=== PATIENT | male | born 1965 | race Caucasian/White ===

== ENCOUNTER 2016-08-21 10:57 | Inpatient (IN) | payer SELFPAY ==
[2016-08-21] MEDS ORDERED: NS 500 ML IV ONE (11:29)
--- NOTE | 2016-08-21 11:33 | CPEKG ---
Heart Rate: 105 RR Interval: 571 P-R Interval: 156 QRSD Interval: 114 QT Interval: 380 QTC Interval: 503 P [place]: 76 QRS [place]: -40 T Wave [place]: 150 EKG Severity - ABNORMAL ECG - EKG Impression: SINUS TACHYCARDIA EKG Impression: MULTIPLE VENTRICULAR PREMATURE COMPLEXES EKG Impression: BIATRIAL ABNORMALITIES EKG Impression: LVH WITH IVCD, LAD AND SECONDARY REPOL ABNRM Electronically Signed By: Parker Matthews 21-Aug-2016 11:43:40
--- NOTE | 2016-08-21 11:39 | EDPHY ---
H & P Time Seen by Provider: 08/21/16 11:13 HPI/ROS: HPI Trouble breathing. 51-year-old male by private vehicle with family. This patient reports that for the last 2 weeks he has been more short of breath. This is worse with exertion and worse with laying flat. Describes it as being worse significantly over the last 3-4 days. He reports that he sometimes wakes up at night gasping for air. Reports he feels short of breath with ambulating and mild exertion. He describes also having a sensation of chest pressure and tightness. Has never had this sensation before. He does construction work. And remodeled motor homes. He does report he has had recent exposure to mice feces. He denies cough. No fever. No other complaints. ROS: Constitutional: No fever, no chills. No weakness. Eyes: No discharge. No changes in vision. ENT: No sore throat. No nasal congestion or rhinorrhea. Respiratory: No cough. As above. Cardiac: As above. Gastrointestinal: No abdominal pain, no vomiting, no diarrhea. Genitourinary: No hematuria. No dysuria or increased frequency with urination. Musculoskeletal: No back pain. No neck pain. No myalgias or arthralgias. Skin: No rashes. Neurological: No headache. No focal weakness or altered sensation. Past medical history: Includes hypertension. He does not take medication for this. He does not have a primary care physician. Social history: He quit smoking 20 years ago. He is here with his family. 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 Last use was a couple of days ago. Denies alcohol. Physical Exam: General Appearance: Alert, no distress. This patient is responding to questions appropriately and in full sentences. This patient appears well- hydrated and well-nourished. Eyes: Pupils equal and round no pallor or injection. No lid edema, erythema or injection. ENT, Mouth: Mucous membranes are moist. The pharyngeal tissues are unremarkable. No edema or swelling. No asymmetry suggestive of abscess. No erythema or exudates. Respiratory: There are no retractions, lungs are clear to auscultation but distant. No wheezing, no rhonchi, no crackles. No tachypnea. Cardiovascular: Regular rate and rhythm. Tachycardia. No murmur. Gastrointestinal: Abdomen is soft and nontender, no masses, bowel sounds normal. No focal tenderness at McBurney's point. No Nj sign. Neurological: Motor sensory function is grossly intact. Cranial nerves are normal. Gait is normal. Skin: Warm and dry, no rashes. Musculoskeletal: Neck is supple and nontender. Extremities are symmetrical. No lower extremity edema. All joints range without pain or impingement. Psychiatric: No agitation. No depression. Database: EKG: EKG time is 11:30 a.m.; EKG shows a sinus tachycardia with ventricular rate of 105. There are intermittent PVCs. There is a nonspecific intraventricular conduction delay. Left ventricular hypertrophy is noted. Atrial abnormalities noted. Interpreted by me. Imaging: Chest x-ray PA and lateral; the cardiac mediastinal silhouette is unremarkable. No evidence of infiltrate or pneumothorax. No acute cardiopulmonary disease process noted. Interpreted by me. CT angiogram of chest; negative for PE. Cardiomyopathy noted. Results discussed with staff radiologist Dr. Gurpreet Coreas. Echocardiogram; global hypokinesis. Hypertrophic cardiomyopathy. Ejection fraction estimated at 12%. Procedures: Emergency department course: IV was placed. He was placed on a advanced nursing professor. He will be started on IV normal saline with 250 cc to be given over the next hour. Add EKG and chest x- ray were performed. Vital signs were reviewed. Moderately hypertensive. Tachycardic at 1:07 a.m.. Afebrile. Room air pulse oximetry is 95%. 1:00 p.m., patient re-evaluated. Resting comfortably at this time. Results of echocardiogram discussed. Need for admission discussed. Need for CT angiogram to evaluate for pulmonary embolism discussed. He and family consents. Hospitalist paged. 1:40 p.m., awaiting results of CT angiogram. Discussed case with hospitalist. Patient accepted for admission to the hospitalist service by Dr. Nunez. Cardiology to consult after admission. 1:50 p.m., patient re-evaluated. Resting comfortably. Results of CT angiogram of chest discussed with him and family. He was admitted to the hospitalist service in stable condition. Differential Diagnosis: The differential diagnosis on this patient includes but is not limited to pulmonary embolism, congestive heart failure, hypertrophic cardiomyopathy, acute coronary syndrome, reactive airway disease. Pneumonia, Hanta virus pulmonary syndrome unlikely. This represents a partial list of diagnoses considered. These considerations are based on history, physical exam, past history, reassessment and diagnostic testing. Smoking Status: Former smoker Constitutional: Initial Vital Signs Temperature (C) 36.7 C 08/21/16 10:59 Heart Rate 107 H 08/21/16 10:59 Respiratory Rate 18 08/21/16 10:59 Blood Pressure 155/97 H 08/21/16 10:59 O2 Sat (%) 95 08/21/16 10:59 O2 Delivery Mode Nasal Cannula O2 (L/minute) 2 Allergies/Adverse Reactions: codeine Allergy (Verified 08/21/16 10:59) Tetracyclines Allergy (Verified 08/21/16 10:59) Home Medications: Medication Instructions Recorded Aspirin [Aspirin 325 mg (*)] 325 mg PO DAILY PRN 08/21/16 Calcium Carbonate [Tums 500MG (*)] 500 mg PO DAILY PRN 08/21/16 Ibuprofen [Motrin (*)] 200 mg PO DAILY PRN 08/21/16 Medical Decision Making - Data Points Laboratory Results: Laboratory Results 08/21/16 11:43 08/21/16 11:43 Medications Given: Discontinued Medications Furosemide (Lasix Injection) 40 mg IVP ONCE ONE Stop: 08/21/16 14:41 Last Admin: 08/21/16 15:35 Dose: 40 mg Sodium Chloride (Ns) 500 mls @ 0 mls/hr IV ONCE ONE PRN Reason: As Directed Stop: 08/21/16 11:30 Last Admin: 08/21/16 11:50 Dose: 500 mls Departure - Departure Disposition: [facility] Inpatient Acute Clinical Impression: Dyspnea, Cardiomyopathy, Heart failure
[2016-08-21 11:55] LABS: % IMMATURE GRANULYOCYTES 0.3 % (0.0-1.1); ABSOLUTE IMMATURE GRANULOCYTES 0.02 10^3/uL (0.00-0.10); ADD DIFF? NO; ADD MORPH? NO; ADD SCAN? NO; ATYPICAL LYMPHOCYTE FLAG 0 (0-99); FRAGMENT RBC FLAG 0 (0-99); HEMOGLOBIN 16.3 g/dL (13.7-17.5); LEFT SHIFT FLG 0 (0-99); LIPEMIA HEMOLYSIS FLAG 80 (0-99); MEAN CELL HEMOGLOBIN 28.5 pg (27.9-34.1); MEAN CELL HEMOGLOBIN CONCENTR. 33.3 g/dL (32.4-36.7); MEAN CELL VOLUME 85.8 fL (81.5-99.8); MEAN PLATELET VOLUME 11.4 fL (8.7-11.7); PLATELET CLUMPS FLAG 0 (0-99); PLATELET COUNT 131 10^3/uL (150-400); RED BLOOD CELL COUNT 5.71 10^6/uL (4.40-6.38); RED CELL DISTRIBUTION WIDTH 14.3 % (11.5-15.2)
[2016-08-21 12:03] LABS: INR 1.13 (0.83-1.16); PROTIME(PATIENT) 14.4 SEC (12.0-15.0)
[2016-08-21 12:04] LABS: APTT 27.3 SEC (23.0-38.0)
[2016-08-21 12:11] LABS: ANION GAP 11 mEq/L (8-16); CARBON DIOXIDE 19 mEq/l (22-31); CHLORIDE 112 mEq/L (97-110); CREATININE 1.3 mg/dL (0.7-1.3); ETHANOL SERUM < 10 mg/dL (0-10); GLOMERULAR FILTRATION RATE 58; GLUCOSE 91 mg/dL (70-100); POTASSIUM 4.1 mEq/L (3.5-5.2); SODIUM 142 mEq/L (134-144)
[2016-08-21 12:22] LABS: CK-MB INTERPRETATION NEGATIVE (NEGATIVE); TROPONIN I 0.025 ng/mL (0-0.034)
[2016-08-21] MEDS ORDERED: IOPAMIDOL (ISOVUE 370) 100 ML BTL IV ONE (12:32)
--- NOTE | 2016-08-21 13:33 | ECHO ---
[id number] + + [address] : : [place] [address] : : [phone] + + Adult Echocardiographic Report + --------+ :Name: HILDA EASTMAN CStudy Date: 08/21/2016 12:34 PM : : Hospital Admission Number: [id number] Anne tion: ER: :: 1965 Gender: Male Height: 72 i n : :Age: 51 yrs Weight: 195 lb : :Reason For Study: Eval LV Fx : : BSA: 2.1 met ers2 : :History: SOB : + --------+ MMode/2D Measurements \T\ Calculations IVSd: 1.0 cm LVIDd: 5.9 cm FS: 5.5 % MV Diam: 3.1 cm LVPWd: 1.3 cm LVIDs: 5.5 cm EDV(Teich): 170.5 ml ESV(Teich): 149.9 ml EF(Teich): 12.1 % Ao root diam: 3.7 cm LVOT diam: 2.0 cm ACS: 2.0 cm LVOT area: 3.1 cm2 Normal Measurement Values: + + :LVIDd (3.5-5.7cm) IVSd (0.6-1.1cm) LVPWd (0.6-1.1cm) Aortic Root (2.0-3.7cm)Left Atrium (1.5-4.0cm): :LV Vol(d) (76-115ml) LV Vol(s) (29-48ml) Ejec Fraction (50-65%)PV Danilo (0.6- 1.2m/s) TV Danilo (0.4-1.0m/s) : :MV E Danilo (0.8-1.0m/s)MV A Danilo (0.3-1.0m/s)LVOT Danilo (0.7-1.2m/s) Asc Ao Danilo ( 0.9-1.8m/s) : + + Doppler Measurements \T\ Calculations MV E max danilo: MV V2 max: Ao V2 max: AI max danilo: 98.2 cm/sec 113.0 cm/sec 103.0 cm/sec 291.0 cm/sec MV A max danilo: MV max P.1 mmHg Ao max PG: AI max P.2 cm/sec MV V2 mean: 4.2 mmHg 33.9 mmHg MV E/A: 4.2 46.0 cm/sec Ao mean PG: AI dec slope: MV mean P.0 mmHg 1.0 mmHg Ao V2 mean: 259.0 cm/sec2 MV V2 VTI: 13.5 cm 74.4 cm/sec AI P1/2t: MV area (1 diam): Ao V2 VTI: 16.2 cm329.1 msec 7.5 cm2 HELEN(I,D): 1.5 cm2 MVA(VTI): 1.8 cm2 HELEN(V,D): 1.6 cm2 MV Flow area (1diam): 7.5 cm2 LV V1 max: MR max danilo: MR(RF 1 diam): SV(MV 1 diam): 53.4 cm/sec 588.0 cm/sec 13.0 % 101.9 ml LV V1 max PG: MR max PG: SI(MV 1 diam): 1.1 mmHg 138.3 mmHg LV V1 mean P.3 ml/m2 1.0 mmHg SV(LVOT): 24.8 ml LV V1 mean: 39.6 cm/sec LV V1 VTI: 7.9 cm PA V2 max: TR max danilo: RF(MV,Ao)(1 diam): 67.9 cm/sec 284.0 cm/sec -0.71 PA max PG: TR max PG: RF(MV,LVOT) 1.8 mmHg 32.3 mmHg (1diam): 0.76 RAP systole: 5.0 mmHg RVSP(TR): 37.3 mmHg Left Ventricle The left ventricle is moderate to severely dilated. There is normal left ventricular wall thickness. Left ventricular systolic function is severely reduced. Ejection Fraction = 10%. There is severe global hypokinesis of the left ventricle. Right Ventricle The right ventricle is normal size. The right ventricular systolic function is moderate to severely reduced. Atria The left atrium is severely dilated. The right atrium is mild to moderately dilated. Mitral Valve There is no mitral valve stenosis. The MR is most likely underestimated due to low LV function. There is moderate mitral regurgitation. Tricuspid Valve There is moderate tricuspid regurgitation. The amount of TR is most lilkely underestimated due to poor RV function. Aortic Valve The aortic valve is trileaflet. There is no aortic stenosis. Mild aortic regurgitation. Pulmonic Valve The pulmonic valve is normal in structure and function. There is no pulmonic valvular regurgitation. Great Vessels The aortic root is normal size. Pericardium/Pleural There is no pericardial effusion. Conclusion A complete two-dimensional transthoracic echocardiogram was performed (2D, M-mode, Doppler and color flow Doppler). Left ventricular systolic function is severely reduced. Ejection Fraction = 10%. There is severe global hypokinesis of the left ventricle. The right ventricular systolic function is moderate to severely reduced. The left atrium is severely dilated. The right atrium is mild to moderately dilated. The MR is most likely underestimated due to low LV function. There is moderate mitral regurgitation. There is moderate tricuspid regurgitation. The amount of TR is most lilkely underestimated due to poor RV function. The aortic valve is trileaflet. Mild aortic regurgitation. The aortic root is normal size. There is no pericardial effusion. The left ventricle is moderate to severely dilated. Final Reading Physician: Lulu Stewart signed on 08/21/2016 01:31 PM Ordering Physician: Parker Matthews Performed By: Ricki Griffin, [employer]
[2016-08-21] MEDS ORDERED: FUROSEMIDE 40 MG/4 ML VIAL IVP ONE (14:40)
[2016-08-21] MEDS ORDERED: TEMAZEPAM 15 MG CAP PO PRN (15:15)
[2016-08-21] MEDS ORDERED: ACETAMINOPHEN 325 MG TAB PO PRN ×2 (15:15→15:29)
[2016-08-21] MEDS ORDERED: NITROGLYCERIN 0.4 MG BTL SL PRN (15:15)
[2016-08-21] MEDS ORDERED: ONDANSETRON DISINTEGRATING 4 MG TAB PO PRN (15:29)
[2016-08-21] MEDS ORDERED: ONDANSETRON 4 MG/2 ML VIAL IVP PRN (15:29)
[2016-08-21] MEDS ORDERED: ASPIRIN 325 MG TAB PO PRN (15:31)
--- NOTE | 2016-08-21 15:34 | GCON ---
[f rep st] CONSULTATION DATE OF CONSULTATION: 08/21/2016 CHIEF COMPLAINT: Shortness of breath. HISTORY OF PRESENT ILLNESS: The patient is a 51-year-old male with a history of untreated hypertens ion and ongoing meth use who presented to the hospital complaining of shortness of breath and chest pressure. 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 This progressed, and over the past 2 weeks, his shortne ss of breath has become fairly pronounced with even minimal exertion. He ultimately presented to [facility] yesterday after he lie down at night time and was severely short of breath and felt like he was going to . He has also had intermittent chest pressure over the last 7-10 days. His echo cardiogram shows a severely depressed ejection fraction with global hypokinesis and EF of 10%. His troponin is negative x1, and BNP is elevated at 4330. He did have a pulmonary CT angiogram which wa s negative for pulmonary embolus. He was first diagnosed with hypertension as a teenager. He has been intermittently treated since at time. He ran out of his medication at least 1 year ago and, therefore, has been untreated since that time. He also has a history of methamphetamine use for the past 25 years. He has tried to cut back over the last few months but is still smoking once every 2-3 days. PAST MEDICAL HISTORY: Hypertension. PAST SURGICAL HISTORY: Noncontributory. FAMILY HISTORY: His father has some heart disease, but the details are unknown. SOCIAL HISTORY: He quit smoking tobacco 15 years ago. He also quit alcohol use 20 years ago. He c ontinues to smoke meth every few days and has a 25 year history. MEDICATIONS: None. ALLERGIES: Codeine and tetracycline. PHYSICAL EXAMINATION: GENERAL: Patient appears in no acute distress. VITALS: Blood pressure 156/ 106, heart rate 105, respirations 16, oxygen saturation of 95% on 2 L. Afebrile. NECK: No carotid bruits auscultated. LUNGS: Clear to auscultation. No wheezes, rhonchi, or crackles auscultated. CARDIAC: Regular rate and rhythm with a positive systolic murmur. ABDOMEN: Soft, nontender, nond istended. EXTREMITIES: Palpable pulses bilaterally without any evidence of edema. NEUROLOGIC: No nfocal. SKIN: No obvious rashes or ecchymosis identified. PSYCHIATRIC: Mood and affect appropria te. REVIEW OF SYSTEMS: Negative except for what is stated in the H and P. LABORATORY: Troponin negative x1. CBC within normal limits. D-dimer 3.22 and BNP 4330. DIAGNOSTIC STUDIES: Chest CTA is negative for pulmonary embolus. Echocardiogram revealed severely depressed ejection fraction of 10% with global hypokinesis. His right ventricular systolic function is moderately to severely reduced. He has moderate MR, but this is likely underestimated due to hi s cardiomyopathy. There is also moderate tricuspid regurgitation. EKG reveals sinus tachycardia at a rate of 105 with 2 PVCs. His QRS duration is prolonged at 114 wi th a nonspecific interventricular conduction delay. He has diffuse nonspecific ST-T wave changes. ASSESSMENT: The patient is a 51-year-old male, who presents with a severe cardiomyopathy in the set ting of methamphetamine use and uncontrolled hypertension. PLAN: The patient presents with a newly diagnosed severe cardiomyopathy with global hypokinesis and ejection fraction of 10%. This is likely related to his 25 year meth use. He is currently in mild congestive heart failure and, therefore, will be given 1 dose of Lasix 40 mg IV. He also will be s tarted on good medical therapy including Coreg 12.5 mg twice a day and aspirin 325 mg daily. Ultima tely he will need an angiogram to assess his coronary circulation. If he is able lie flat, we plan to do this tomorrow. /[id number]/MODL
--- NOTE | 2016-08-21 16:09 | GHP ---
[f rep st] HISTORY AND PHYSICAL DATE OF ADMISSION: 08/21/2016 CHIEF COMPLAINT: Shortness of breath; history of chest pain. HISTORY OF PRESENT ILLNESS: This is a 51-year-old male with a history of untreated hypertension and methamphetamine use. He states over the last 3 weeks he has been having increasing shortness of br eath with exertion as well. Also with orthopnea. No lower extremity edema. He has had pretty much constant chest pressure. He has had no recent viral infections. He has not had chest pain prior t o the last few weeks. He has been under a lot of emotional distress. REVIEW OF SYSTEMS: A 10-point review of systems was obtained and other than stated was negative. PAST MEDICAL HISTORY: Hypertension. SOCIAL HISTORY: No tobacco or alcohol use, but does smoke methamphetamine usually about every other day. He has been heavily using for some time. FAMILY HISTORY: Does not know his family history. PHYSICAL EXAM: VITAL SIGNS: Afebrile, blood pressure 168/120, heart rate 100, oxygen saturation 98 % 2 L. GENERAL: The patient is well developed, no apparent distress. HEENT: Nonicteric sclerae. Extraocular muscles intact. Moist mucous membranes. NECK: Supple. No thyromegaly. LUNGS: Good effort. Clear to auscultation bilaterally. CARDIOVASCULAR: Regular rate and rhythm. No murmurs, gallops. ABDOMEN: Positive bowel sounds. Soft, nontender, nondistended. No hepatosplenomegaly. EXTREMITIES: No clubbing, cyanosis, or edema. SKIN: Without rash. No intact. NEUROLOGIC: Aler t and oriented x3. Moving all 4 extremities equally. PSYCHIATRIC: Normal mood and affect. LABORATORY DATA: CBC is normal except platelets are slightly low 131. Sodium 142, potassium 4.1, B UN is 25, creatinine 1.3. CPK 530. Troponin is 0.025. BNP 4300. IMAGING: Chest x-ray shows cardiomegaly. No overt failure. Echocardiogram shows EF of 10%, dilated left ventricle, severe global hypokinesis of left ventricle. Moderate mitral regurgitation. CT to rule out pulmonary embolism shows no PE. EKG personally reviewed and interpreted. Sinus tachycardia. ST-segment elevations in the interiorl y looks like repolarization and T-wave inversions laterally. ASSESSMENT: This is a 51-year-old, who presented with new onset cardiomyopathy. PLAN: 1. Cardiomyopathy. Patient does not look fluid overloaded at this point. I think his dyspnea is p robably related to his cardiomyopathy. We will start medical management including carvedilol and li sinopril. I talked to cardiology and they will probably do a heart cath tomorrow. Will keep him n. p.o. after midnight. Will check another troponin in the morning. 2. Uncontrolled hypertension. Medications as above. 3. Methamphetamine use. Patient is counseled to abstain in the future. We can add a little bit of Ativan for some withdrawal symptoms. /[id number]/MODL
[2016-08-21] MEDS: LISINOPRIL 10 MG TAB PO SCH (16:58)
[2016-08-21] MEDS: LORazepam 0.5 MG TAB PO PRN ×2 (16:58→22:30)
[2016-08-21] MEDS: CARVEDILOL 6.25 MG TAB PO SCH (18:07)
[2016-08-22 05:13] LABS: % IMMATURE GRANULYOCYTES 0.3 % (0.0-1.1); ABSOLUTE IMMATURE GRANULOCYTES 0.02 10^3/uL (0.00-0.10); ADD DIFF? NO; ADD MORPH? NO; ADD SCAN? NO; ATYPICAL LYMPHOCYTE FLAG 0 (0-99); FRAGMENT RBC FLAG 0 (0-99); HEMATOCRIT 49.5 % (40.0-51.0); HEMOGLOBIN 16.6 g/dL (13.7-17.5); LEFT SHIFT FLG 0 (0-99); LIPEMIA HEMOLYSIS FLAG 80 (0-99); MEAN CELL HEMOGLOBIN 28.8 pg (27.9-34.1); MEAN CELL HEMOGLOBIN CONCENTR. 33.5 g/dL (32.4-36.7); MEAN CELL VOLUME 85.8 fL (81.5-99.8); MEAN PLATELET VOLUME 11.4 fL (8.7-11.7); PLATELET CLUMPS FLAG 10 (0-99); PLATELET COUNT 132 10^3/uL (150-400); RED BLOOD CELL COUNT 5.77 10^6/uL (4.40-6.38); RED CELL DISTRIBUTION WIDTH 14.2 % (11.5-15.2)
[2016-08-22 05:21] LABS: INR 1.2 (0.83-1.16); PROTIME(PATIENT) 15.2 SEC (12.0-15.0)
[2016-08-22 05:22] LABS: APTT 28.1 SEC (23.0-38.0)
[2016-08-22 05:23] LABS: ANION GAP 11 mEq/L (8-16); CALCIUM 8.7 mg/dL (8.5-10.4); CARBON DIOXIDE 23 mEq/l (22-31); CHLORIDE 108 mEq/L (97-110); CHOLESTEROL 98 mg/dL (140-220); CHOLESTEROL/HDL RATIO 3.92 RATIO (1.00-4.97); CREATININE 1.5 mg/dL (0.7-1.3); GLOMERULAR FILTRATION RATE 49; GLUCOSE 91 mg/dL (70-100); HIGH DENSITY LIPOPROTEIN 25 mg/dL (40-65); LOW DENSITY LIPOPROTEIN 60 mg/dL (80-100); MAGNESIUM 1.9 mg/dL (1.6-2.3); NON-HIGH DENSITY LIPOPROTEIN 73 mg/dL (90-129); SODIUM 142 mEq/L (134-144); TRIGLYCERIDE 68 mg/dL (40-150); VERY LOW DENSITY LIPOPROTEINS 13 mg/dL (8-25)
[2016-08-22 05:30] LABS: TROPONIN I 0.032 ng/mL (0-0.034)
[2016-08-22] MEDS ORDERED: diphenhydrAMINE 25 MG CAP PO ONE ×2 (06:00→08:40)
[2016-08-22] MEDS ORDERED: DIAZEPAM 5 MG TAB PO ONE (06:00)
[2016-08-22] MEDS: CARVEDILOL 6.25 MG TAB PO SCH ×2 (08:03→18:18)
[2016-08-22] MEDS ORDERED: DIAZEPAM 5 MG TAB ONE ×2 (08:40→08:45)
[2016-08-22] MEDS ORDERED: FAMOTIDINE 20 MG TAB ONE (08:40)
[2016-08-22] MEDS ORDERED: ASPIRIN EC 325 MG TAB PO ONE (08:40)
--- NOTE | 2016-08-22 08:43 | CPEKG ---
Heart Rate: 87 RR Interval: 690 P-R Interval: 152 QRSD Interval: 118 QT Interval: 412 QTC Interval: 496 P [place]: 74 QRS [place]: -43 T Wave [place]: 248 EKG Severity - ABNORMAL ECG - EKG Impression: SINUS RHYTHM EKG Impression: BIATRIAL ABNORMALITIES EKG Impression: LVH WITH IVCD, LAD AND SECONDARY REPOL ABNRM Electronically Signed By: Laurent Sotomayor 22-Aug-2016 14:27:07
[2016-08-22] MEDS ORDERED: LIDOCAINE 1% 30 ML SDV ONE (09:26)
[2016-08-22] MEDS ORDERED: MIDAZOLAM 2 MG/2 ML VIAL ONE (09:31)
[2016-08-22] MEDS ORDERED: IOPAMIDOL (ISOVUE-300) 150 ML BTL IV ONE (09:31)
[2016-08-22] MEDS ORDERED: fentaNYL 100 MCG/2 ML INJ ONE (09:31)
[2016-08-22] MEDS ORDERED: POTASSIUM CL 20 MEQ TAB PO ONE ×2 (12:00→14:30)
[2016-08-22] MEDS ORDERED: FUROSEMIDE 20 MG/2 ML VIAL IVP ONE ×2 (12:00→14:30)
--- NOTE | 2016-08-22 14:19 | SOAPPROG ---
SO[facility] Progress Note Assessment/Plan: Assessment: 1. Heart failure with reduced ejection fraction 2. Dilated cardiomyopathy 3. Congestive heart failure 4. Weakness The cause of his heart failure is not clear. It may be related to drug use in the past. Since he has been exposed IV drugs we will check him for HIV as well which may contributed to his heart failure. I recommend that we do a cardiac MRI. He has now had a coronary angiogram that shows no evidence of coronary artery disease. He does not have a longstanding history of hypertension. I would aim for gentle diuresis. He got dose extra dose of IV Lasix today and starting tomorrow we can see if he needs more Lasix or not. He does not have significant peripheral edema. And may well be that a many of his symptoms are secondary to his low cardiac output. He is not particularly fluid overloaded he can certainly add lie flat now has always been able to without trouble. His renal function has bumped and will watch how he tolerates the medications and the diuresis. His prognosis is guarded and will have to watch him. He can be followed up with the [facility]. Down the road he may well need ICD. If he develops any reason for secondary prevention ICD that would put in sooner than the usual 3 months for primary prevention. All his questions have been answered. Plan: 08/22/16 14:16 Subjective: He feels better today. He still has some shortness of breath He still has weakness. He is not having fevers or chills. He has had no cough. He is not producing any sputum He has no nausea or vomiting. He thinks that things are improving. He has no palpitations He has no lightheadedness or dizziness Objective: Vital Signs Temp Pulse Resp BP Pulse Ox 36.4 C 81 18 131/88 H 95 08/22/16 13:51 08/22/16 13:51 08/22/16 13:51 08/22/16 13:51 08/22/16 13:51 Laboratory Results 08/22/16 04:51 08/22/16 04:51 08/21/16 08/22/16 08/23/16 05:59 05:59 05:59 Intake Total 1600 Output Total 3500 Balance -1900 PT 15.2 SEC (12.0-15.0) H 08/22/16 04:51 INR 1.20 (0.83-1.16) H 08/22/16 04:51 Physical Exam - Physical Exam General Appearance: alert Neck: non-tender, full range of motion Respiratory: crackles, rhonchi, prolonged expiration, No wheezing Cardiac/Chest: regular rate, rhythm, JVD, systolic murmur, No friction rub, No irregularly irregular Abdomen: non-tender, soft, No organomegaly Skin: warm/dry Extremities: non-tender, No calf tenderness Neuro/Psych: alert, normal mood/affect ICD10 Worksheet Patient Problems: Problems Problem Status Onset Cardiomyopathy Acute Dyspnea Acute Heart failure Acute
[2016-08-22] MEDS: LISINOPRIL 10 MG TAB PO SCH (14:26)
--- NOTE | 2016-08-22 16:39 | HOSPPROG ---
Hospitalist Progress Note Assessment/Plan: * nonischemic cardiomyopathy * continue medical management * hypertension * continue Coreg * will hold lisinopril to see what creatinine is tomorrow * elevated creatinine * monitored tomorrow * history of methamphetamine use Subjective: no new complaints Objective: Vital Signs Temp Pulse Resp BP Pulse Ox 35.8 C L 85 14 117/95 H 100 08/22/16 14:44 08/22/16 14:44 08/22/16 14:44 08/22/16 14:44 08/22/16 14:44 Laboratory Results 08/22/16 04:51 08/22/16 04:51 08/21/16 08/22/16 08/23/16 05:59 05:59 05:59 Intake Total 1600 Output Total 3500 Balance -1900 PT 15.2 SEC (12.0-15.0) H 08/22/16 04:51 INR 1.20 (0.83-1.16) H 08/22/16 04:51 discussed with Cardiology tele personally viewed interpreted normal sinus rhythm - Physical Exam Constitutional: no apparent distress, appears nourished, not in pain Eyes: anicteric sclera, EOMI Ears, Nose, Mouth, Throat: moist mucous membranes, hearing normal, ears appear normal Cardiovascular: regular rate and rhythym, no murmur, rub, or gallop Respiratory: no respiratory distress, no rales or rhonchi, clear to auscultation Gastrointestinal: normoactive bowel sounds, soft, non-tender abdomen, no palpable masses Skin: warm Neurologic: AAOx3 Psychiatric: interacting appropriately, not anxious, not encephalopathic, thought process linear ICD10 Worksheet Patient Problems: Problems Problem Status Onset Cardiomyopathy Acute Dyspnea Acute Heart failure Acute
[2016-08-22] MEDS: ASPIRIN 325 MG TAB PO SCH (18:18)
[2016-08-22] MEDS ORDERED: GADOBUTROL 10 ML VIAL IVP ONE (18:20)
[2016-08-22] MEDS ORDERED: SODIUM CL NASAL 45 ML BTL ONE (19:37)
[2016-08-23 06:04] LABS: ANION GAP 8 mEq/L (8-16); CALCIUM 8.7 mg/dL (8.5-10.4); CARBON DIOXIDE 18 mEq/l (22-31); CHLORIDE 110 mEq/L (97-110); CREATININE 1.6 mg/dL (0.7-1.3); GLOMERULAR FILTRATION RATE 46; GLUCOSE 99 mg/dL (70-100); POTASSIUM 4.7 mEq/L (3.5-5.2); SODIUM 136 mEq/L (134-144)
[2016-08-23] MEDS: CARVEDILOL 6.25 MG TAB PO SCH ×2 (08:13→17:29)
[2016-08-23] MEDS: ASPIRIN 325 MG TAB PO SCH (08:13)
--- NOTE | 2016-08-23 09:27 | PDCARPN ---
Cardiology Progress Note Chief Complaint: SOB Assessment/Plan: Assessment: The patient is a 51 y/o Meth user who presented to the hospital with one month of progressive SOB and chest pressure. He was found to have a severe NICMP with EF of 10%. A angiogram showed patent coronaries yesterday. A Cardiac MRI was ordered but he become clastraphobic and was unable to finish it. He was started on Coreg for his CMP and uncontrolled HTN. His blood pressure is better controlled. Plan: 1. NICMP with EF of 10% likely secondary to meth use. He had a 6 beat run of NSVT this morning. No history of syncope. A [employer] is recommended but unfortunately he does not have insurance and can not afford the device. I have called [employer] the [employer] rep to see if they have a patient assistance program or are willing to donate a device. He should continue Coreg and Lisinopril can be added once his renal function improves. He is not volume overloaded at this time. 2. Acute renal failure secondary to being dry. Continue to monitor. 08/23/16 10:31 Subjective: SOB related to anxiety and stuffy nose. His CP has resolved. Reviewed/Discussed With: hospitalist Objective: Vital Signs (8 Hrs) Temp Pulse Resp BP Pulse Ox 08/23/16 07:54 36.4 C 84 12 136/95 H 99 08/23/16 03:19 36.4 C 87 18 120/74 96 Intake/Output (24 Hrs) 08/22/16 08/23/16 08/24/16 05:59 05:59 05:59 Intake Total 1600 1600 Output Total 3500 450 Balance -1900 1150 Intake: Oral (ml) 1100 600 IV Intake (ml) 1000 IV Infused (ml) 500 Output: Urine (ml) 3500 450 Toilet 600 Urinal 2900 450 Other: Weight 88.564 kg Intake Quantity npo Yes Sufficient Number of Voids Toilet 1 1 Result Diagrams: 08/22/16 04:51 08/23/16 04:44 Cardiac Labs: Cardiac Lab Results (72 Hrs) 08/22/16 04:51 Troponin I 0.032 Telemetry: 6 beat run of NSVT. - Physical Exam Constitutional: WDWN Cardiovascular: regular rate and rhythm, no rubs, no gallops Respiratory: clear to auscultate bilat Skin: no edema Neurologic: AAOx3 ICD10 Worksheet Patient Problems: Problems Problem Status Onset Cardiomyopathy Acute Dyspnea Acute Heart failure Acute
--- NOTE | 2016-08-23 14:19 | HOSPPROG ---
Hospitalist Progress Note Assessment/Plan: * nonischemic cardiomyopathy * continue medical management * most likely due to methamphetamine and uncontrolled hypertension * euvolemic * nonsustained V-tach * cardiology working on seen there is financial help for Life Vest * hypertension * continue Coreg * will hold lisinopril to see what creatinine is tomorrow * elevated creatinine * monitored tomorrow * history of methamphetamine use * disposition * possible home tomorrow Subjective: no new complaints Objective: Vital Signs Temp Pulse Resp BP Pulse Ox 36.5 C 82 18 132/80 H 94 08/23/16 11:24 08/23/16 11:24 08/23/16 11:24 08/23/16 11:24 08/23/16 11:24 Laboratory Results 08/22/16 04:51 08/23/16 04:44 08/22/16 08/23/16 08/24/16 05:59 05:59 05:59 Intake Total 1600 1600 Output Total 3500 450 Balance -1900 1150 PT 15.2 SEC (12.0-15.0) H 08/22/16 04:51 INR 1.20 (0.83-1.16) H 08/22/16 04:51 discussed with Cardiology tele personally viewed interpreted small run of V-tach - Physical Exam Constitutional: no apparent distress, appears nourished, not in pain Eyes: anicteric sclera, EOMI Ears, Nose, Mouth, Throat: moist mucous membranes, hearing normal Cardiovascular: regular rate and rhythym, no murmur, rub, or gallop Respiratory: no respiratory distress, no rales or rhonchi, clear to auscultation Gastrointestinal: normoactive bowel sounds, soft, non-tender abdomen, no palpable masses Skin: warm Neurologic: AAOx3 Psychiatric: interacting appropriately, not anxious, not encephalopathic, thought process linear ICD10 Worksheet Patient Problems: Problems Problem Status Onset Cardiomyopathy Acute Dyspnea Acute Heart failure Acute
[2016-08-24 05:55] LABS: ANION GAP 9 mEq/L (8-16); CALCIUM 8.8 mg/dL (8.5-10.4); CARBON DIOXIDE 18 mEq/l (22-31); CHLORIDE 112 mEq/L (97-110); CREATININE 1.3 mg/dL (0.7-1.3); GLOMERULAR FILTRATION RATE 58; GLUCOSE 97 mg/dL (70-100); POTASSIUM 4.5 mEq/L (3.5-5.2); SODIUM 139 mEq/L (134-144)
[2016-08-24] MEDS: CARVEDILOL 6.25 MG TAB PO SCH ×2 (09:05→18:36)
[2016-08-24] MEDS: ASPIRIN 325 MG TAB PO SCH (09:05)
--- NOTE | 2016-08-24 11:35 | PDCARPN ---
Cardiology Progress Note Assessment/Plan: Assessment /plan: 51-year-old male admitted with dyspnea. Found to have severe cardiomyopathy with an ejection fraction of 10%. No significant coronary disease on angiogram. Moderate mitral and tricuspid regurgitation. Also has history of poorly-controlled hypertension. Etiology of his cardiomyopathy is thought to be hypertensive as well as methamphetamine use. 1. Cardiomyopathy with acute systolic heart failure: On exam he appears euvolemic but is still having some PND. Will give him 1 dose of 20 mg of IV Lasix today and start spironolactone. Careful attention to his renal function. Continue Coreg. GERARDO inhibitor was started but has been held due to fluctuating renal function. Certainly this should be reconsidered if his renal function remained stable. Check BNP. 2. Nonsustained VT: He had a 6 beat run of ET on 08/23. This was reviewed by Dr. Ayala. Given his profoundly reduced ejection fraction he is at risk for malignant ventricular arrhythmias. We have recommended life vest. This is being worked on by case management. He will require reassessment of ejection fraction after 3 months of optimally tolerated medical therapy to see whether he will require permanent fibrillator. Continue beta-mahin. 3. hypertension: Improved with Coreg. Moderate diuresis today. Will hopefully add Gerardo inhibitor in the near future. 4. acute renal failure: Improved with holding of diuretics. Follow-up closely. He likely has some degree of underlying renal insufficiency based on his long history of hypertension. 5. methamphetamine use: Clearly, completely abstaining would improve his overall risk. 6. hypoxia: This may be related to underlying lung disease. His chest x-ray was not notable for pulmonary edema or pneumonia. He may require home oxygen. 08/24/16 11:32 Subjective: he did have some paroxysmal nocturnal dyspnea last night. No chest pain. No abdominal pain. Overall breathing feels better compared to admission. Reviewed/Discussed With: hospitalist Objective: Vital Signs (8 Hrs) Temp Pulse Resp BP Pulse Ox 08/24/16 08:43 36.4 C 94 18 150/106 H 99 08/24/16 07:30 85 L Intake/Output (24 Hrs) 08/23/16 08/24/16 08/25/16 05:59 05:59 05:59 Intake Total 1600 1850 Output Total 450 420 Balance 1150 1430 Intake: Oral (ml) 600 1850 IV Intake (ml) 1000 Output: Urine (ml) 450 420 Toilet 120 Urinal 450 300 Other: Intake Quantity Yes Yes Sufficient Number of Voids Toilet 1 1 1 Number of Stools Toilet 1 No acute distress. JVP 12. Regular rate and rhythm with soft early systolic murmur at the left sternal border. No S3. No S4. No rub. Lungs clear to auscultation without wheezes rhonchi or rales Abdomen soft nontender nondistended without bruits masses or hepatosplenomegaly Extremities warm per well perfused without cyanosis clubbing or edema Neuro alert and oriented x3 without gross focal neurologic deficits Result Diagrams: 08/22/16 04:51 08/24/16 05:16 Cardiac Labs: Cardiac Lab Results (72 Hrs) 08/22/16 04:51 Troponin I 0.032 EKG: Review x2: Sinus rhythm with LVH and diffuse repolarization abnormalities. Telemetry: Past 24 hours:Sinus rhythm. Echocardiogram: Reviewed: Severely reduced left ventricular ejection fraction with an ejection fraction of 10% and severe global hypokinesis. Moderate mitral and moderate tricuspid regurgitation. Cath films reviewed: No significant coronary disease. Severely reduced ejection fraction. Moderate mitral regurgitation ICD10 Worksheet Patient Problems: Problems Problem Status Onset Dyspnea Acute Cardiomyopathy Acute Heart failure Acute
[2016-08-24] MEDS ORDERED: FUROSEMIDE 20 MG/2 ML VIAL IVP ONE (11:36)
[2016-08-24] MEDS: SPIRONOLACTONE 25 MG TAB PO SCH (12:22)
--- NOTE | 2016-08-24 14:56 | HOSPPROG ---
Hospitalist Progress Note Assessment/Plan: 51-year-old male with a known history of hypertension and daily methamphetamine use presented to the hospital with shortness of breath. Echocardiogram showed an EF of 10%. Patient new to me today -nonischemic cardiomyopathy. We will continue medical management. Is a significant cardiomyopathy with an ejection fraction of 10%. This is most likely secondary to uncontrolled hypertension exacerbated by methamphetamine use on a daily basis. Patient reports he is now going to stop methamphetamine. -nonsustained V-tach. He is reported to had 6 beats of nonsustained V-tach on the monitor. Due to his diminished ejection fraction in the finding of an SVT he is a candidate for a LifeVest. At this time we are having difficulty obtaining this for him. We will investigate this further tomorrow. -hypertension, uncontrolled. He is currently on Coreg. We will hold the lisinopril until his creatinine is normal. - history of methamphetamine use -disposition: Day today. He is close to discharge but we need to establish with her life vest is available for this gentleman. -code status is full Subjective: No complaints of chest pain shortness of breath nausea vomiting or diaphoresis. Has a rather flat affect. Objective: Vital Signs Temp Pulse Resp BP Pulse Ox 36.4 C 82 14 123/86 H 96 08/24/16 12:16 08/24/16 12:16 08/24/16 12:16 08/24/16 12:16 08/24/16 12:16 Laboratory Results 08/22/16 04:51 08/24/16 05:16 08/23/16 08/24/16 08/25/16 05:59 05:59 05:59 Intake Total 1600 1850 Output Total 450 420 Balance 1150 1430 PT 15.2 SEC (12.0-15.0) H 08/22/16 04:51 INR 1.20 (0.83-1.16) H 08/22/16 04:51 - Time Spent With Patient Time Spent with Patient: greater than 35 minutes Time Spent with Patient: Greater than 35 minutes spent on this patients care, greater than 50% of time spent counseling, educating, and coordinating care regarding the above mentioned plan. - Pending Discharge Pending Discharge Within 24 Hours: No Pending Discharge Within 48 Hours: Yes Pending Discharge Date: 08/26/16 Pending Discharge Time: 11:00 - Physical Exam Constitutional: no apparent distress Eyes: PERRL, anicteric sclera Ears, Nose, Mouth, Throat: moist mucous membranes, hearing normal Cardiovascular: regular rate and rhythym, no murmur, rub, or gallop, other ( Distant heart sounds) Respiratory: no respiratory distress, no rales or rhonchi Gastrointestinal: normoactive bowel sounds, soft, non-tender abdomen, no palpable masses Genitourinary: no bladder fullness Skin: warm Musculoskeletal: full muscle strength Neurologic: AAOx3, CN II-XII Intact ICD10 Worksheet Patient Problems: Problems Problem Status Onset Dyspnea Acute Cardiomyopathy Acute Heart failure Acute
[2016-08-25 06:40] LABS: ALANINE AMINOTRANSFERASE 120 IU/L (21-72); ALBUMIN 3.5 g/dL (3.5-5.0); ALKALINE PHOSPHATASE 75 IU/L (38-126); ANION GAP 11 mEq/L (8-16); ASPARTATE AMINOTRANSFERASE 111 IU/L (17-59); BILIRUBIN,TOTAL 0.6 mg/dL (0.1-1.4); CALCIUM 8.9 mg/dL (8.5-10.4); CARBON DIOXIDE 22 mEq/l (22-31); CHLORIDE 108 mEq/L (97-110); CREATININE 1.4 mg/dL (0.7-1.3); GLOMERULAR FILTRATION RATE 53; GLUCOSE 94 mg/dL (70-100); POTASSIUM 4.4 mEq/L (3.5-5.2); SODIUM 141 mEq/L (134-144); TOTAL PROTEIN 6.5 g/dL (6.3-8.2)
[2016-08-25 06:59] LABS: TOTAL IRON BINDING CAPACITY 385 ug/dL (260-490)
[2016-08-25 07:00] LABS: % SATURATION 18 % (20-55); FERRITIN - BCH 41.2 ng/mL (17.9-464.0)
[2016-08-25] MEDS: SPIRONOLACTONE 25 MG TAB PO SCH (08:51)
[2016-08-25] MEDS: ASPIRIN 325 MG TAB PO SCH (08:51)
[2016-08-25] MEDS: CARVEDILOL 6.25 MG TAB PO SCH ×2 (08:52→17:41)
--- NOTE | 2016-08-25 12:17 | PDCARPN ---
Cardiology Progress Note Chief Complaint: NICM Assessment/Plan: Assessment: 51-year-old male admitted with progressive dyspnea and pnd (NYHA FC III-IV). Found to have severe cardiomyopathy with an ejection fraction of 10%. No significant coronary disease on angiogram. Moderate mitral and tricuspid regurgitation. Also has history of poorly-controlled hypertension. Etiology of his cardiomyopathy is thought to be hypertensive as well as methamphetamine use. #. NICM with acute systolic heart failure: EF 10%; appears euvolemic and breathing has improved given 20 mg of IV Lasix and start spironolactone yesterday continue Coreg will add ACEi now as his renal function has been pretty close to b/l will defer Lasix dosing today #. Nonsustained VT: had a 6 beat run of ET on 08/23. reviewed by Dr. Ayala who is recommending 90 days with lifevest case management involved and will assess patient's financial needs #. hypertension: SBP elevated today will add Liisinopril #. mild CKD with GUTIERREZ: likely related to untreated htn and then diuretics will need outpatient labs #. methamphetamine use: Clearly, completely abstaining would improve his overall risk. #. hypoxia: still have supplemental O2 needs #. elevated LFTs: possibly hepatic congestion/ follow Plan: Start Lisinopril Await Lifevest placement Will need close outpatient followup 08/25/16 12:00 08/25/16 12:20 Subjective: Denies dyspnea currently. No edema. Reviewed/Discussed With: hospitalist Objective: Vital Signs (8 Hrs) Temp Pulse Resp BP Pulse Ox 08/25/16 08:00 97.8 F 93 17 128/105 H 98 Intake/Output (24 Hrs) 08/24/16 08/25/16 08/26/16 05:59 05:59 05:59 Intake Total 1850 1170 Output Total 420 2450 Balance 1430 -1280 Intake: Oral (ml) 1850 1170 Output: Urine (ml) 420 2450 Toilet 120 Urinal 300 2450 Other: Weight 83.1 kg Intake Quantity Yes Yes Sufficient Number of Voids Toilet 1 1 Number of Stools Toilet 1 Result Diagrams: 08/22/16 04:51 08/25/16 04:00 Cardiac Labs: Laboratory Tests 08/21/16 08/25/16 08/25/16 11:43 04:00 04:59 AST 111 H ALT 120 H NT-Pro-B Natriuret Pep 4330 H 2150 H EKG: SR with JOSE E/LVH with strain, IVCD Telemetry: SR - Physical Exam Constitutional: healthy appearing, no apparent distress Eyes: PERRL Ears, Nose, Mouth, Throat: moist mucous membranes Cardiovascular: regular rate and rhythm, systolic murmur Respiratory: clear to auscultate bilat, no crackles Genitourinary: No suárez in urethra Skin: no rashes, no abrasions Neurologic: AAOx3 Psychiatric: cooperative, interactive ICD10 Worksheet Patient Problems: Problems Problem Status Onset Cardiomyopathy Acute Dyspnea Acute Heart failure Acute
--- NOTE | 2016-08-25 15:43 | HOSPPROG ---
Hospitalist Progress Note Assessment/Plan: 51-year-old male with a known history of hypertension and daily methamphetamine use presented to the hospital with shortness of breath. Echocardiogram showed an EF of 10%. -nonischemic cardiomyopathy. We will continue medical management. Is a significant cardiomyopathy with an ejection fraction of 10%. This is most likely secondary to uncontrolled hypertension exacerbated by methamphetamine use on a daily basis. Patient reports he is now going to stop methamphetamine. For management will continue his Coreg and an NICOLETTE inhibitor due today and defer dosing of Lasix today. -nonsustained V-tach. He is reported to had 6 beats of nonsustained V-tach on the monitor. Due to his diminished ejection fraction in the finding of an SVT he is a candidate for a LifeVest. At this time we are having difficulty obtaining this for him. Patient has a relative who will bring the money for the down payment of his life vest. Once this is accomplished he can be discharged which is likely to be either later tonight or tomorrow morning. -hypertension, uncontrolled. He is currently on Coreg. Creatinine is nearly normal 1 will add lisinopril for BP control. -acute on chronic kidney disease. This is probably related to his hypertension and the use of diuretics. This can be followed as an outpatient -mild elevated LFTs possibly secondary to hepatic congestion. This can be followed as an outpatient. - history of methamphetamine use -disposition: Discharge this evening or tomorrow once he has the life vest. Follow-up will be with through [facility]. -code status is full Subjective: No complaints denies chest pain rhythm has been stable. Objective: Vital Signs Temp Pulse Resp BP Pulse Ox 36.4 C 74 12 113/84 H 99 08/25/16 12:00 08/25/16 12:00 08/25/16 12:00 08/25/16 12:00 08/25/16 12:00 Laboratory Results 08/22/16 04:51 08/25/16 04:59 08/24/16 08/25/16 08/26/16 05:59 05:59 05:59 Intake Total 1850 1170 Output Total 420 2450 Balance 1430 -1280 PT 15.2 SEC (12.0-15.0) H 08/22/16 04:51 INR 1.20 (0.83-1.16) H 08/22/16 04:51 - Time Spent With Patient Time Spent with Patient: greater than 35 minutes Time Spent with Patient: Greater than 35 minutes spent on this patients care, greater than 50% of time spent counseling, educating, and coordinating care regarding the above mentioned plan. - Physical Exam Constitutional: no apparent distress Ears, Nose, Mouth, Throat: moist mucous membranes, hearing normal Cardiovascular: regular rate and rhythym, no murmur, rub, or gallop, other ( Monitor shows only sinus rhythm without ectopy) Respiratory: no respiratory distress, no rales or rhonchi, clear to auscultation Gastrointestinal: normoactive bowel sounds, soft, non-tender abdomen, no palpable masses Skin: warm Neurologic: AAOx3, CN II-XII Intact Psychiatric: interacting appropriately ICD10 Worksheet Patient Problems: Problems Problem Status Onset Dyspnea Acute Cardiomyopathy Acute Heart failure Acute
[2016-08-26] MEDS: CARVEDILOL 6.25 MG TAB PO SCH (09:04)
[2016-08-26] MEDS: ASPIRIN 325 MG TAB PO SCH (09:04)
[2016-08-26] MEDS: SPIRONOLACTONE 25 MG TAB PO SCH (09:04)
[2016-08-26 09:16] VITALS: BP 128/82; PULSE 85; RESP 16; TEMP 97.9; O2SAT 97
--- NOTE | 2016-08-26 11:45 | GDS ---
[f rep st] DISCHARGE SUMMARY DIAGNOSES: 1. Severe nonischemic cardiomyopathy with an EF of 10%. 2. Nonsustained ventricular tachycardia. 3. Uncontrolled hypertension. 4. Acute on chronic kidney disease. 5. Hepatitis C, suspect active with elevated liver function tests. 6. History of methamphetamine use. HOSPITAL COURSE: This is a 51-year-old man who presented with a chief complaint of shortness of perla ath. Echocardiogram showed him to have an EF of 10%. Per Cardiology, coronary angiogram was negati ve. The etiology was suspected to be daily meth use for an extended period of time. He is euvolemi c on discharge. Started on carvedilol, lisinopril and Aldactone given his EF of 10%. Aspirin has b een recommended by Cardiology given his low EF and possibility of clotting. He does not seem like a great anticoagulation candidate, though this should be discussed as an outpatient with Cardiology. He had a short run of ventricular tachycardia, will be discharged with a Life Vest. He is wearing t his when I see him. His lisinopril use should be follow closely given his acute versus chronic kidn ey disease. His creatinine on the day before discharge was 1.4. FOLLOW-UP: He has a follow-up with Dr. Moran on 09/04 at 11 a.m. He is made aware of this appoin tment. DISCHARGE INSTRUCTIONS: His hepatitis C has been has failed interferon treatment in the past. I lee ve given him a referral to see Dr. Marrero. He would like to consider newer, less toxic treatments for hepatitis C. His LFTs have been mildly elevated. I spent more than 30 minutes on the day of discharge coordinating care. /[id number]/MODL
== END 2016-08-26 12:06 | disposition home or self-care (01) | DRG 314 ==
LOC: F2W 15:14
PROVIDERS: ADMIT Internal Medicine; ATTEND Internal Medicine
DX: I42.7 Cardiomyopathy due to drug and external agent (principal); T43.625A Adverse effect of amphetamines, initial encounter; I47.2 Ventricular tachycardia; I50.21 Acute systolic (congestive) heart failure; N17.9 Acute kidney failure, unspecified; B19.20 Unspecified viral hepatitis C without hepatic coma; I12.9 Hypertensive chronic kidney disease with stage 1 through stage 4 chronic kidney disease, or unspecified chronic kidney disease; N18.9 Chronic kidney disease, unspecified; F15.90 Other stimulant use, unspecified, uncomplicated; Z87.891 Personal history of nicotine dependence
CPT/HCPCS: A9585; G0472; G0480; J1644; J2250; J3010; Q9967